=== PATIENT | male | born 1980 ===

== ENCOUNTER 2018-05-28 20:05 | Emergency (ER) | payer OTHER ==
[2018-05-28 20:34] VITALS: RESP 18; BMI 25.1
--- NOTE | 2018-05-28 21:24 | ED PDOC ---
Arrival/HPI - General Chief Complaint: Flu-like Symptoms Time Seen by Provider: 05/28/18 20:08 Historian: Patient - History of Present Illness Narrative History of Present Illness (Text): Kwabena Acosta is a 37 year old male who presents to the Emergency department complaining of fever since yesterday. Patient reports associated body aches, and productive cough with yellowish sputum. Patient states he was given Motrin at 18:00 today. Patient is tolerating PO without difficulty and reports having normal bowel movements. Patient states he did not have an influenza vaccination this year. Patient's daughter is sick with similar symptoms, but denies any other sick contacts. Patient denies any recent travel, vision changes, dizziness, rash, vomiting, diarrhea, abdominal pain, chest pain, SOB, or any other complaints. Time/Duration: 24 hours Symptom Onset: Gradual Symptom Course: Unchanged Activities at Onset: Light Context: Home Past Medical History - Provider Review Nursing Documentation Reviewed: Yes - Infectious Disease Hx of Infectious Diseases: None - Psychiatric Hx Substance Use: No Family/Social History - Physician Review Nursing Documentation Reviewed: Yes Family/Social History: Unknown Family HX Smoking Status: Never Smoked Hx Alcohol Use: No Hx Substance Use: No Allergies/Home Meds Allergies/Adverse Reactions: Allergies No Known Allergies Allergy (Verified 05/28/18 20:25) Review of Systems - Physician Review All systems were reviewed & negative as marked: Yes - Review of Systems Constitutional: Fevers Eyes: Normal ENT: Normal Respiratory: Cough, Sputum Cardiovascular: Chest Pain Gastrointestinal: Normal. absent: Abdominal Pain, Diarrhea, Nausea, Vomiting Genitourinary Male: Normal. absent: Dysuria, Frequency, Hematuria, Urinary Output Changes Musculoskeletal: Other (+body aches). absent: Back Pain, Neck Pain Skin: Normal. absent: Rash Neurological: Normal. absent: Headache, Dizziness Endocrine: Normal Hemo/Lymphatic: Normal Psychiatric: Normal Physical Exam Vital Signs Reviewed: Yes Vital Signs Temp Pulse Resp BP Pulse Ox 05/28/18 20:53 102 F H 05/28/18 20:26 102.0 F H 76 18 137/72 95 Temperature: Febrile Blood Pressure: Normal Pulse: Regular Respiratory Rate: Normal Appearance: Positive for: Well-Appearing, Non-Toxic, Comfortable Pain Distress: None Mental Status: Positive for: Alert and Oriented X 3 - Systems Exam Head: Present: Atraumatic, Normocephalic Pupils: Present: PERRL Extroacular Muscles: Present: EOMI Conjunctiva: Present: Normal Ears: Present: Normal, NORMAL TM, Normal Canal. No: Erythema, TM Bulging, Fluid, TM Perf Mouth: Present: Moist Mucous Membranes Pharnyx: Present: Normal. No: ERYTHEMA, EXUDATE, TONSILS ENLARGED, Peritonsilar Swelling, Uvular Deviation, Muffled/Hoarse Voice, Strider, Soft Palate/Uvular Edema Nose (External): Present: Atraumatic Nose (Internal): Present: Normal Inspection Neck: Present: Normal Range of Motion. No: Meningeal Signs, MIDLINE TENDERNESS, Paraspinal Tenderness Respiratory/Chest: Present: Clear to Auscultation, Good Air Exchange. No: Respiratory Distress, Accessory Muscle Use Cardiovascular: Present: Regular Rate and Rhythm, Normal S1, S2. No: Murmurs Abdomen: Present: Normal Bowel Sounds. No: Tenderness, Distention, Peritoneal Signs Back: Present: Normal Inspection. No: CVA Tenderness, Paraspinal Tenderness Upper Extremity: Present: Normal Inspection, Normal ROM, NORMAL PULSES, Neurovascularly Intact, Capillary Refill < 2s. No: Cyanosis, Edema, Temperature Abnormalties Lower Extremity: Present: Normal Inspection, NORMAL PULSES, Normal ROM, Neurovascularly Intact, Capillary Refill < 2 s. No: Edema, Temperature Abnormalties Neurological: Present: GCS=15, CN II-XII Intact, Speech Normal, Motor Func Grossly Intact, Normal Sensory Function, Gait Normal Skin: Present: Warm, Dry, Normal Color. No: Rashes Lymphatic: No: Cervical Adenopathy Psychiatric: Present: Alert, Oriented x 3, Normal Insight, Normal Concentration, Normal Affect, Normal Mood Medical Decision Making ED Course and Treatment: Impression: 37 year old male complaining of fever, body aches, productive cough with yellowish sputum Plan: -- CXR -- Rapid influenza, rapid strep -- Tylenol -- Reassess and disposition Progress Notes: Rapid flu and strep negative Will treat for flu secondary to positive sick contact with positive flu test also treated here in ED today. Vital signs have improved with tylenol CXR negative for active disease as read by me Diagnostic testing results and plan of care discussed with patient. Strict instructions given regarding prescription use, importance of followup, and signs/symptoms to return to ER including difficulty breathing, lethargy, chest pain, or any other new/worsening symptoms. Pt verbalized understanding of discussion. Patient is A&Ox3, ambluating with steady gait, with vital signs stable for discharge. - Lab Interpretations Lab Results: Lab Results 05/28/18 20:52: Influenza Typ A,B (EIA) Negative for flu a/b, Grp A Beta Strep Ag Negative I have reviewed the lab results: Yes - RAD Interpretation Radiology Orders: 05/28/18 20:35 CHEST TWO VIEWS (PA/LAT) [RAD] Stat - Medication Orders Current Medication Orders: Discontinued Medications Acetaminophen (Tylenol 325mg Tab) 975 mg PO STAT STA Stop: 05/28/18 20:36 Last Admin: 05/28/18 20:53 Dose: 975 mg MAR Pain/Vitals Document 05/28/18 20:53 JOL (Rec: 05/28/18 20:53 JOL [id number]) Pain Reassessment Is This A Pain ReAssessment? No Sleep Is patient sleeping during reassessment? No Presence of Pain Presence of Pain No Vitals Temperature (97.6 F-99.6 F) 102 F Temperature Source Oral - Scribe Statement The provider has reviewed the documentation as recorded by the Luis A Dang Provider Scribe Attestation: All medical record entries made by the Scribe were at my direction and personally dictated by me. I have reviewed the chart and agree that the record accurately reflects my personal performance of the history, physical exam, medical decision making, and the department course for this patient. I have also personally directed, reviewed, and agree with the discharge instructions and disposition. Disposition/Present on Arrival - Present on Arrival Any Indicators Present on Arrival: No History of DVT/PE: No History of Uncontrolled Diabetes: No Urinary Catheter: No History of Decub. Ulcer: No History Surgical Site Infection Following: None - Disposition Have Diagnosis and Disposition been Completed?: Yes Diagnosis: Influenza-like illness Disposition: HOME/ ROUTINE Disposition Time: 22:00 Patient Plan: Discharge Condition: IMPROVED Discharge Instructions (ExitCare): Flu, Adult (DC) Additional Instructions: Tamiflu every 12 hours for 5 days, 9 more doses Increase fluids Followup with primary doctor tomorrow Return to ER with any new/worsening symptoms Prescriptions: Oseltamivir Phosphate [Tamiflu] 75 mg PO Q12 #9 capsule Referrals: [facility] [Outside] - Follow up with primary Forms: [employer] (Slovenian), WORK NOTE
[2018-05-28 21:36] LABS: INFLUENZA A B NEGATIVE FOR FLU A/B (NEGATIVE)
[2018-05-28 22:04] VITALS: BP 135/74; PULSE 63; TEMP 99.8; O2SAT 96
--- NOTE | 2018-05-29 10:37 | RAD ---
Date of service: 05/28/2018 HISTORY: cough COMPARISON: No prior. TECHNIQUE: Chest PA and lateral FINDINGS: LUNGS: No active pulmonary disease. PLEURA: No significant pleural effusion identified. No pneumothorax apparent. CARDIOVASCULAR: No aortic atherosclerotic calcification present. Normal cardiac size. No pulmonary vascular congestion. OSSEOUS STRUCTURES: No significant abnormalities. VISUALIZED UPPER ABDOMEN: Normal. OTHER FINDINGS: None. IMPRESSION: No active disease.
== END 2018-05-28 22:15 | disposition home or self-care (01) ==
LOC: ED 20:05
DX: J11.1 Influenza due to unidentified influenza virus with other respiratory manifestations (principal)